=== PATIENT | female | born 1980 | race Asian ===

== ENCOUNTER 2017-05-24 20:16 | Emergency (ER) | payer OTHER ==
[2017-05-24] MEDS ORDERED: Albuterol 2.5 MG/3 ML NEB.SOL* (0.083%) INH ONE (20:23)
[2017-05-24] MEDS ORDERED: predniSONE TAB* 20 MG PO ONE (20:23)
[2017-05-24 20:33] VITALS: BP 157/88
[2017-05-24] MEDS ORDERED: Acetaminophen TAB* 325 MG PO ONE (20:40)
--- NOTE | 2017-05-24 20:57 | UC ---
Respiratory Complaint HPI - HPI Summary HPI Summary: 36 y/o female w/ PMHX of Asthma, HTN presents to the urgent care c/o of SOB and asthma exacerbation that started 1 hr ago at a [employer] party. She thinks the carpet of the place triggered the symptoms. She started w/ nasal congestion and running nose w/ clear nasal discharge, mild SOB and then wheezing. 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 She went to [facility] on Tuesday and she felt w/ chills and she took 2 ibuprofen and symptoms improved. Last time she use the albuterol inhaler was 1 week ago. Pt denies throat tightness, fever, cough, N/V/D, urinary symptoms, abdominal pain, QUIROZ. Pt has not other complains - History of Current Complaint Chief Complaint: UCAsthma Stated Complaint: CONGESTION ASTHMA Time Seen by Provider: 05/24/17 20:22 Hx Obtained From: Patient Hx Last Menstrual Period: 04/10/2017 ?: Yes Onset/Duration: Sudden Onset, Lasting Hours, Still Present Timing: Constant Severity Initially: Moderate Severity Currently: Moderate Pain Intensity: 0 Pain Scale Used: 0-10 Numeric Aggravating Factors: Allergens, Exertion, Deep Breaths Alleviating Factors: Bronchodilator Associated Signs And Symptoms: Positive: Dyspnea, Nasal Congestion - w/ clear discharge Related History: Seasonal Allergies - Risk Factors Pulmonary Embolism Risk Factors: Negative, Cardiac Risk Factors: Negative Pseudomonas Risk Factors: Negative Tuberculosis Risk Factors: Negative - Allergies/Home Medications Allergies/Adverse Reactions: Allergies Allergy/AdvReac Type Severity Reaction Status Date / Time Aspirin AdvReac Unknown Unknown Unverified 05/24/17 20:48 Reaction Details Bees Allergy Severe Hives Uncoded 05/24/17 21:23 seasonal allergies Allergy Severe respiratory Uncoded 05/24/17 20:48 Nuts Allergy Headache Uncoded 05/24/17 20:48 Home Medications: Home Medications Ibuprofen TAB* [Advil TAB*] 400 mg PO PRN 05/24/17 [History] PMH/Surg Hx/FS Hx/Imm Hx Previously Healthy: Yes Cardiovascular History: Hypertension Respiratory History: Asthma Other Respiratory History: sesonal allergies - Surgical History Surgical History: None - Family History Known Family History: Positive: Cardiac Disease, Hypertension - Social History Occupation: Employed Full-time Lives: With Family Alcohol Use: None Substance Use Type: None Smoking Status (MU): Never Smoked Tobacco Review of Systems Constitutional: Negative Skin: Rash - facial flush and neck w/ mild hives Eyes: Negative ENT: Nasal Discharge - w/ clear discharge, Sinus Congestion Respiratory: Shortness Of Breath - that started 1 hr ago at a alliance party Cardiovascular: Negative Gastrointestinal: Negative Genitourinary: Negative Motor: Negative Neurovascular: Negative Musculoskeletal: Negative Neurological: Negative Psychological: Negative All Other Systems Reviewed And Are Negative: Yes Physical Exam Triage Information Reviewed: Yes Appearance: Well-Appearing, No Pain Distress, Well-Nourished, Obese Vital Signs Reviewed: Yes Eye Exam: Normal Eyes: Positive: Conjunctiva Clear - PERRLS , EOMI, fundi grossly normal ENT: Positive: Normal ENT inspection, Hearing grossly normal, Pharynx normal, Nasal congestion, Nasal drainage - clear, TMs normal. Negative: Tonsillar swelling, Tonsillar exudate Dental Exam: Normal Neck exam: Normal Neck: Positive: Supple, Nontender, No Lymphadenopathy Respiratory: Positive: Chest non-tender, Lungs clear, No accessory muscle use, Respiratory distress - mild, Wheezing - B/L omari w/ diffuse wheezing Cardiovascular Exam: Normal Cardiovascular: Positive: RRR, No Murmur, Pulses Normal, Brisk Capillary Refill Abdominal Exam: Normal Abdomen Description: Positive: Nontender, No Organomegaly, Soft. Negative: CVA Tenderness (R), CVA Tenderness (L) Bowel Sounds: Positive: Present Musculoskeletal Exam: Normal Musculoskeletal: Positive: Strength Intact, ROM Intact, No Edema Neurological Exam: Normal Psychological Exam: Normal Skin: Positive: rashes - Facial flushed and neck with hives and pruritis Respiratory Course/Dx - Course Course Of Treatment: 36 y/o female w/ PMHX of Asthma,HTN presents to the urgent care c/o of SOB and asthma exacerbation that started 1 hr ago at a [employer] [place]. She thinks the carpet of the place triggered the symptoms. She started w / nasal congestion and running nose w/ clear nasal discharge, mild SOB and then wheezing. 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 She went to [facility] on Tuesday and she felt w/ chills and she took 2 ibuprofen and symptoms improved. Last time she use the albuterol inhaler was 1 week ago. Pt denies throat tightness, fever, cough, N/V/D, urinary symptoms, abdominal pain, QUIROZ. Hx obtained. Pt's O2sat: 97 and Temp: 100.4F. Pt w/ mild respiratory distress, given a nebulizer treatment immediately and Tylenol PO. Pt tolerated well albuterol treatment and O2sat improve. I advised the Pt to immediately go to the ER for further Treatment B/L lungs still with mild wheezing and since she has HX of anaphylactic reaction. I don't know what she was exposed to and now she is developing hives in her neck. Pt refused ambulace transport and stated her friend will take her to the ER in private car. Pt advised of all the risks . Pt stated she felt better after albuterol treatment. Pt left the clinic A&OX3 and hemodinamically stable and stating she was going to the ER. - Differential Dx/Diagnosis Differential Diagnosis/HQI/PQRI: Asthma - exacerbation, Bronchitis, Lower Resp Infection, Sinusitis, Other - anaphylactic reaction, allergic reaction, Provider Diagnoses: 1- Asthma exacerbation s/p allergic reaction r/o anaphylactic reaction. 2- Discharge - Discharge Plan Condition: Stable Disposition: HOME Discharge Disposition Comment: D/C to the ER for Tx on asthma exacerbation and poss. [id number]. Patient Education Materials: Asthma (ED), Anaphylaxis (ED) Referrals: Marlene Dumont MD [Primary Care Provider] - Additional Instructions: Please go to the ER immediately for further treatment to r/o anaphylactic reaction. Pt w/ Hx of Asthma and anaphylactic reaction to bee and allergy shot. Today exposed to unknown allergen at a [employer] party 1hr ago. Pt is about 6 weeks . Pt given albuterol treatment at the Urgent care, However, she still with SOB . Pt decline Ambulance transport, and decided to go by private car.
== END 2017-05-24 21:30 | disposition home or self-care (01) ==
LOC: UCEAST 20:16
DX: O26.891 Other specified pregnancy related conditions, first trimester (principal); J45.901 Unspecified asthma with (acute) exacerbation; I10 Essential (primary) hypertension; Z88.6 Allergy status to analgesic agent; Z91.030 Bee allergy status; Z91.018 Allergy to other foods; Z3A.01 Less than 8 weeks gestation of pregnancy
CPT/HCPCS: 81003; 84702; 87086; 99212; A9270-GY; G0463

== ENCOUNTER 2017-05-24 22:01 | Emergency (ER) | payer OTHER ==
[2017-05-24] MEDS ORDERED: Albuterol/Ipratropium NEB.SOL* Albuterol 2.5 MG/Ipratropium 0.5 MG 3 ML INH ONE (23:05)
--- NOTE | 2017-05-24 23:12 | ED ---
Viktoria Call SooYoung, scribed for Kraig Del Angel MD on 05/24/17 at 2304 . Asthma - HPI Summary HPI Summary: A 36 y/o F who is about 6-weeks presents to ED after an asthma attack at approx 2000. Pt [place] [facility] [place], they referred her to ED for further evaluation. Associated sx: chest and back tightness; erythema to chest and face; pruritus. Pt takes Albuterol at home as needed.She states this is the worst asthma attack she's ever had, unsure of what triggered it. - History of Current Complaint Chief Complaint: EDAsthma Stated Complaint: ASTHMA ATTACK-SENT FROM [facility] Time Seen by Provider: 05/24/17 23:01 Hx Obtained From: Patient Hx Last Menstrual Period: 04/10/2017 Onset/Duration: Sudden Onset, Lasting Hours, Still Present Timing: Constant Initial Severity: Severe Current Severity: Moderate Pain Intensity: 4 Pain Scale Used: 0-10 Numeric Alleviating Symptoms: Inhalers/Nebulizers - [place] [facility] Associated Signs and Symptoms: Positive: Negative - Allergy/Home Medications Allergies/Adverse Reactions: Allergies Allergy/AdvReac Type Severity Reaction Status Date / Time Aspirin AdvReac Unknown Unknown Verified 05/24/17 23:55 Reaction Details Bees Allergy Severe Hives Uncoded 05/24/17 21:23 seasonal allergies Allergy Severe respiratory Uncoded 05/24/17 20:48 Nuts Allergy Headache Uncoded 05/24/17 20:48 PMH/Surg Hx/FS Hx/Imm Hx Previously Healthy: No Endocrine/Hematology History: Denies: Hx Diabetes, Hx Thyroid Disease Cardiovascular History: Reports: Hx Hypertension Respiratory History: Reports: Hx Asthma Denies: Hx Chronic Obstructive Pulmonary Disease (COPD) GI History: Denies: Hx Ulcer Infectious Disease History: Denies: Hx Clostridium Difficile, Hx Hepatitis, Hx Human Immunodeficiency Virus (HIV), Hx Shingles, Hx Tuberculosis, Hx Known/Suspected VRE, Hx Known/ Suspected VRSA, History Other Infectious Disease, Traveled Outside the [place] in Last 30 Days - Family History Known Family History: Positive: Cardiac Disease, Hypertension - Social History Occupation: Employed Full-time Lives: Alone Alcohol Use: None Hx Substance Use: No Substance Use Type: Reports: None Hx Tobacco Use: No Smoking Status (MU): Never Smoked Tobacco Review of Systems Positive: Chest Pain - chest "tightness" Positive: Other - pos: back tightness Skin: Other - pos: erythema, pruritus All Other Systems Reviewed And Are Negative: Yes Physical Exam Triage Information Reviewed: Yes Vital Signs On Initial Exam: Initial Vitals Temp Pulse Resp BP Pulse Ox 99.4 F 74 22 156/89 98 05/24/17 22:12 05/24/17 22:12 05/24/17 22:12 05/24/17 22:12 05/24/17 22:12 Vital Signs Reviewed: Yes Appearance: Positive: Well-Appearing, No Pain Distress Skin: Positive: Warm Head/Face: Positive: Normal Head/Face Inspection Eyes: Positive: VALERIE ENT: Positive: Hearing grossly normal Neck: Positive: Supple Respiratory/Lung Sounds: Positive: Breath Sounds Present, Wheezes - few [id number] exp wheezes Cardiovascular: Positive: RRR Abdomen Description: Positive: Nontender, Soft Bowel Sounds: Positive: Present Musculoskeletal: Positive: Strength/ROM Intact Neurological: Positive: Alert, Oriented to Person Place, Time Diagnostics - Vital Signs Vital Signs Temp Pulse Resp BP Pulse Ox 05/24/17 22:12 99.4 F 74 22 156/89 98 - Laboratory Lab Statement: Any lab studies that have been ordered have been reviewed, and results considered in the medical decision making process. Re-Evaluation - Re-Evaluation First Eval Change: Improved Asthma Course/Dx - Course Course Of Treatment: A 36 y/o F who is about 6-weeks presents to ED after an asthma attack at approx 2000. Pt went [place] [facility] [place] nebul[place], they referred her to ED for further evaluation. Assocaited sx: chest and back tightness; erythema to chest and face; pruritus. Pt takes Albuterol at home as needed.She states this is the worst asthma attack she's ever had, unsure of what triggered it. Pt given duoneb in ED. Will D/C home to follow up with PCP. - Diagnoses Provider Diagnoses: Asthma Discharge - Discharge Plan Condition: Stable Disposition: HOME Patient Education Materials: Asthma (ED) Referrals: Marlene Dumont MD [Primary Care Provider] - Additional Instructions: Follow up with your primary care provider in the next few days. Please return to the ED if you experience new or worsening symptoms. The documentation as recorded by the scribe, VanDeMark,SooYoung accurately reflects the service I personally performed and the decisions made by me, Kraig Del Angel MD.
[2017-05-25 00:01] VITALS: BP 160/85
== END 2017-05-25 00:01 | disposition home or self-care (01) ==
LOC: ED 22:01
DX: R07.9 Chest pain, unspecified (principal); J45.909 Unspecified asthma, uncomplicated; Z34.91 Encounter for supervision of normal pregnancy, unspecified, first trimester
CPT/HCPCS: 94640; 99283; A9270-GY

== ENCOUNTER 2017-07-08 02:28 | Emergency (ER) | payer OTHER ==
[2017-07-08 03:22] LABS: Hematocrit 37 % (35-47); Hemoglobin 12.6 g/dl (12.0-16.0); Mean Corpuscular HGB Conc 34 g/dl (31-36); Mean Corpuscular Hemoglobin 30 pg (27-31); Mean Corpuscular Volume 88 fL (80-97); Mean Platelet Volume 8 um3 (7.4-10.4); Red Blood Count 4.17 10^6/ul (4.0-5.4); Red Cell Distribution Width 13 % (10.5-15); White Blood Count 9.4 10^3/ul (3.5-10.8)
[2017-07-08 03:25] LABS: Urine Bacteria Absent (Absent); Urine Bilirubin Negative (Negative); Urine Glucose Negative (Negative); Urine Nitrite Negative (Negative)
[2017-07-08 03:34] LABS: BUN/Creatinine Ratio 16.7 (8-20); EGFR African American 219.6 (>60); EGFR Non-African American 170.7 (>60); Potassium 3.2 mmol/L (3.5-5.0); Total Bilirubin 0.6 mg/dL (0.2-1.0)
--- NOTE | 2017-07-08 06:20 | ED ---
Tobin Call Benjamin, scribed for Marbin Harrington MD on 07/08/17 at 0253 . GI/ HPI - HPI Summary HPI Summary: 36yo female c/o sudden onset vaginal bleeding that started 30 minutes ago. Pt also reports some discomfort and slight cramping. Pt is still bleeding. Pt is 14 weeks right now and this is her 2nd . December 24, 2017 is her due date. First child was delivered vaginally, without any complications. Per EMR, pt's blood type is B positive. - History of Current Complaint Chief Complaint: EDVaginalBleeding Time Seen by Provider: 07/08/17 02:37 Stated Complaint: 14 WEEKS PRE, BLEEDING Hx Obtained From: Patient Hx Last Menstrual Period: 04/10/2017 Onset/Duration: Started Minutes Ago - 30 minutes Timing: Constant Severity: Mild Current Severity: Mild Vaginal Bleeding Description: Bright Red Pain Intensity: 1 Location of Pain: Suprapubic Pain Characteristics: Cramping Additional Signs & Symptoms: Positive: Vaginal Bleeding - Allergy/Home Medications Allergies/Adverse Reactions: Allergies Allergy/AdvReac Type Severity Reaction Status Date / Time Aspirin AdvReac Unknown Unknown Verified 07/08/17 02:33 Reaction Details Bees Allergy Severe Hives Uncoded 07/08/17 02:33 seasonal allergies Allergy Severe respiratory Uncoded 07/08/17 02:33 Nuts Allergy Headache Uncoded 07/08/17 02:33 PMH/Surg Hx/FS Hx/Imm Hx Endocrine/Hematology History: Denies: Hx Diabetes, Hx Thyroid Disease Cardiovascular History: Reports: Hx Hypertension Respiratory History: Reports: Hx Asthma Denies: Hx Chronic Obstructive Pulmonary Disease (COPD) GI History: Denies: Hx Ulcer Infectious Disease History: No Infectious Disease History: Denies: Hx Clostridium Difficile, Hx Hepatitis, Hx Human Immunodeficiency Virus (HIV), Hx Shingles, Hx Tuberculosis, Hx Known/Suspected VRE, Hx Known/ Suspected VRSA, History Other Infectious Disease, Traveled Outside the [place] in Last 30 Days - Family History Known Family History: Positive: Cardiac Disease, Hypertension - Social History Occupation: Employed Part-time Lives: Alone Alcohol Use: None Hx Substance Use: No Substance Use Type: Reports: None Hx Tobacco Use: No Smoking Status (MU): Never Smoked Tobacco Review of Systems Constitutional: Negative Eyes: Negative ENT: Negative Cardiovascular: Negative Respiratory: Negative Positive: Abdominal Pain - cramping Positive: other - vaginal bleeding Musculoskeletal: Negative Skin: Negative Neurological: Negative Psychological: Normal All Other Systems Reviewed And Are Negative: Yes Physical Exam - Summary Physical Exam Summary: The patient is well-nourished in no acute distress and in no acute pain. The skin is warm and dry and skin color reflects adequate perfusion. HEENT: The head is normocephalic and atraumatic. The pupils are equal and reactive. The conjunctivae are clear and without drainage. Nares are patent and without drainage. Mouth reveals moist mucous membranes and the throat is without erythema and exudate. The external ears are intact. The ear canals are patent and without drainage. The tympanic membranes are intact. Neck is supple with full range of motion and non-tender. There are no carotid bruits. There is no neck vein distension. Respiratory: Chest is non-tender. Lungs are clear to auscultation and breath sounds are symmetrical and equal. Cardiovascular: Hear is regular rate and rhythm. There is no murmur or rub auscultated. There is no peripheral edema and pulses are symmetrical and equal. Abdomen: The abdomen is soft and non-tender. There are normal bowel sounds heard in all four quadrants and there is no organomegaly palpated. Musculoskeletal: There is no back pain noted. Extremities are non-tender with full range of motion. There is good capillary refill. There is no peripheral edema or calf tenderness elicited. : Couldnt palpation fundus of the uterus Neurological: Patient is alert and oriented to person, place and time. The patient has symmetrical motor strength in all four extremities. Cranial nerves are grossly intact. Deep tendon reflexes are symmetrical and equal in all four extremities. Psychiatric: The patient has an appropriate affect and does not exhibit any anxiety or depression. Triage Information Reviewed: Yes Vital Signs On Initial Exam: Initial Vitals Temp Pulse Resp BP Pulse Ox 98.5 F 82 18 155/101 100 07/08/17 02:30 07/08/17 02:30 07/08/17 02:30 07/08/17 02:30 07/08/17 02:30 Vital Signs Reviewed: Yes Diagnostics - Vital Signs Vital Signs Temp Pulse Resp BP Pulse Ox 07/08/17 02:30 98.5 F 82 18 155/101 100 - Laboratory Lab Results: Lab Results 07/08/17 07/08/17 07/08/17 Range/Units 03:05 03:05 03:05 WBC 9.4 (3.5-10.8) 10^3/ul RBC 4.17 (4.0-5.4) 10^6/ul Hgb 12.6 (12.0-16.0) g/dl Hct 37 (35-47) % MCV 88 (80-97) fL MCH 30 (27-31) pg MCHC 34 (31-36) g/dl RDW 13 (10.5-15) % Plt Count 364 (150-450) 10^3/ul MPV 8 (7.4-10.4) um3 Neut % (Auto) 59.8 (38-83) % Lymph % (Auto) 30.9 (25-47) % Meagher % (Auto) 4.9 (1-9) % Eos % (Auto) 3.5 (0-6) % Baso % (Auto) 0.9 (0-2) % Absolute Neuts (auto) 5.6 (1.5-7.7) 10^3/ul Absolute Lymphs (auto) 2.9 (1.0-4.8) 10^3/ul Absolute Monos (auto) 0.5 (0-0.8) 10^3/ul Absolute Eos (auto) 0.3 (0-0.6) 10^3/ul Absolute Basos (auto) 0.1 (0-0.2) 10^3/ul Absolute Nucleated RBC 0 10^3/ul Nucleated RBC % 0 INR (Anticoag Therapy) 0.94 (0.89-1.11) Sodium 136 (133-145) mmol/L Potassium 3.2 L (3.5-5.0) mmol/L Chloride 106 (101-111) mmol/L Carbon Dioxide 22 (22-32) mmol/L Anion Gap 8 (2-11) mmol/L BUN 7 (6-24) mg/dL Creatinine 0.42 L (0.51-0.95) mg/dL Est GFR ( Amer) 219.6 (>60) Est GFR (Non-Af Amer) 170.7 (>60) BUN/Creatinine Ratio 16.7 (8-20) Glucose 80 (70-100) mg/dL Calcium 9.0 (8.6-10.3) mg/dL Total Bilirubin 0.60 (0.2-1.0) mg/dL AST 21 (13-39) U/L ALT 44 (7-52) U/L Alkaline Phosphatase 39 (34-104) U/L Total Protein 7.0 (6.4-8.9) g/dL Albumin 4.0 (3.2-5.2) g/dL Globulin 3.0 (2-4) g/dL Albumin/Globulin Ratio 1.3 (1-3) Beta HCG, Quant 646793.00 mIU/mL Urine Color Urine Appearance Urine pH (5-9) Ur Specific [place] (1.010-1.030) Urine Protein (Negative) Urine Ketones (Negative) Urine Blood (Negative) Urine Nitrate (Negative) Urine Bilirubin (Negative) Urine Urobilinogen (Negative) Ur Leukocyte Esterase (Negative) Urine WBC (Auto) (Absent) Urine RBC (Auto) (Absent) Ur Squamous Epith Cells (Absent) Urine Bacteria (Absent) Urine Glucose (Negative) Urine Ascorbic Acid (Negative) 07/08/17 Range/Units 03:05 WBC (3.5-10.8) 10^3/ul RBC (4.0-5.4) 10^6/ul Hgb (12.0-16.0) g/dl Hct (35-47) % MCV (80-97) fL MCH (27-31) pg MCHC (31-36) g/dl RDW (10.5-15) % Plt Count (150-450) 10^3/ul MPV (7.4-10.4) um3 Neut % (Auto) (38-83) % Lymph % (Auto) (25-47) % Meagher % (Auto) (1-9) % Eos % (Auto) (0-6) % Baso % (Auto) (0-2) % Absolute Neuts (auto) (1.5-7.7) 10^3/ul Absolute Lymphs (auto) (1.0-4.8) 10^3/ul Absolute Monos (auto) (0-0.8) 10^3/ul Absolute Eos (auto) (0-0.6) 10^3/ul Absolute Basos (auto) (0-0.2) 10^3/ul Absolute Nucleated RBC 10^3/ul Nucleated RBC % INR (Anticoag Therapy) (0.89-1.11) Sodium (133-145) mmol/L Potassium (3.5-5.0) mmol/L Chloride (101-111) mmol/L Carbon Dioxide (22-32) mmol/L Anion Gap (2-11) mmol/L BUN (6-24) mg/dL Creatinine (0.51-0.95) mg/dL Est GFR ( Amer) (>60) Est GFR (Non-Af Amer) (>60) BUN/Creatinine Ratio (8-20) Glucose (70-100) mg/dL Calcium (8.6-10.3) mg/dL Total Bilirubin (0.2-1.0) mg/dL AST (13-39) U/L ALT (7-52) U/L Alkaline Phosphatase (34-104) U/L Total Protein (6.4-8.9) g/dL Albumin (3.2-5.2) g/dL Globulin (2-4) g/dL Albumin/Globulin Ratio (1-3) Beta HCG, Quant mIU/mL Urine Color Yellow Urine Appearance Clear Urine pH 6.0 (5-9) Ur Specific [place] 1.020 (1.010-1.030) Urine Protein Negative (Negative) Urine Ketones Trace H (Negative) Urine Blood 2+ H (Negative) Urine Nitrate Negative (Negative) Urine Bilirubin Negative (Negative) Urine Urobilinogen Negative (Negative) Ur Leukocyte Esterase Negative (Negative) Urine WBC (Auto) Trace(0-5/hpf) (Absent) Urine RBC (Auto) Trace(0-2/hpf) (Absent) Ur Squamous Epith Cells Present H (Absent) Urine Bacteria Absent (Absent) Urine Glucose Negative (Negative) Urine Ascorbic Acid * H (Negative) Result Diagrams: 07/08/17 03:05 07/08/17 03:05 Lab Statement: Any lab studies that have been ordered have been reviewed, and results considered in the medical decision making process. GIGU Course/Dx - Course Course Of Treatment: Reviewed pt's medication list and allergies. High blood pressure noted. Per EMR, pt's blood type is B positive. Pt will be signed out to Dr. Muir at 0700 hour, pending US report. - Diagnoses Differential Diagnoses - Female: Threatened , Other - second trimester bleeding Provider Diagnoses: Threatened Discharge - Discharge Plan Condition: Stable Disposition: HOME The documentation as recorded by the Tobin boswell Benjamin accurately reflects the service I personally performed and the decisions made by me, Marbin Harrington MD.
--- NOTE | 2017-07-08 08:16 | RAD ---
INDICATION: Early patency. Request for limited evaluation to determine viability. COMPARISON: None TECHNIQUE: Transabdominal scanning was performed as part of limited evaluation. A anatomic survey was not performed. FINDINGS: There is a single intrauterine gestation in variable presentation with a posterior placenta. There is a marginal placenta previa. cardiac activity is documented at 150 beats for minute. Amniotic fluid index measures 14. Cervix is closed measuring 3.1 cm. The estimated gestational age based on biparietal diameter, head circumference, abdominal circumference, and femur length corresponds to 16 weeks 3 days, 16 weeks 2 days, 15 weeks 6 days, and 15 weeks 6 days resulting a composite ultrasound value of 16 weeks 1 day. IMPRESSION: EARLY INTRAUTERINE GESTATION AT 16 WEEKS 1 DAY BASED ON ULTRASOUND PARAMETERS. MARGINAL PLACENTA PREVIA. SUGGEST A FOLLOW-UP ANATOMIC SCAN AT 18-20 WEEKS WHICH CAN ALSO ASSESS FOR NORMAL PLACENTAL MIGRATION.
[2017-07-08 10:09] VITALS: BP 132/86
--- NOTE | 2017-07-08 10:38 | ED ---
Refugio Call Angela, scribed for Jt Muir MD on 07/08/17 at 0725 . Progress - Progress Note Progress Note: This pt is a 36 y/o female, currently 14 weeks , presenting to [facility] c/o sudden onset of vaginal bleeding that began at 0230 today. This pt was signed out from Dr. Harrington, pending disposition, awaiting US. US shows Early intrauterine gestation at 16 weeks 1 day based on ultrasound parameters. Marginal placenta previa. Suggest a follow-up anatomic scan at 18- 20 weeks which can also assess for normal placental migration. Pt will be discharged home in stable condition with diagnosis of threatened . - Results/Orders Results/Orders: US IMPRESSION: Early intrauterine gestation at 16 weeks 1 day based on ultrasound parameters. Marginal placenta previa. Suggest a follow-up anatomic scan at 18-20 weeks which can also assess for normal placental migration. ED physician has reviewed this radiology report and agrees. Course/Dx - Course Course Of Treatment: This pt is a 36 y/o female, currently 14 weeks , presenting to [facility] c/o sudden onset of vaginal bleeding that began at 0230 today. This pt was signed out from Dr. Harrington. He reports the pt came in with vaginal bleeding and is currently . Dr. Harrington ordered an US, which is read as: Early intrauterine gestation at 16 weeks 1 day based on ultrasound parameters. Marginal placenta previa. Suggest a follow-up anatomic scan at 18- 20 weeks which can also assess for normal placental migration. Rh is positive. I discussed the case with Dr. Wood, who recommends the pt be discharged home with follow up from her [employer] immediately. Pt is instructed to return to the ED for any increased vaginal bleeding or abdominal cramping. Pt is hemodynamically stable, alert and oriented x3 - Diagnoses Provider Diagnoses: Threatened - Provider Notifications Discussed Care Of Patient With: Patrice Wood Time Discussed With Above Provider: 09:22 Instructed by Provider To: Other - I discussed the pt's case with Dr. Wood. He recommeds that the pt be discharged home with follow up from pt's [employer]. The documentation as recorded by the Refugio boswell Angela accurately reflects the service I personally performed and the decisions made by me, Jt Muir MD.
== END 2017-07-08 10:15 | disposition home or self-care (01) ==
LOC: ED 02:28
DX: O46.91 Antepartum hemorrhage, unspecified, first trimester (principal); O20.0 Threatened abortion; Z3A.14 14 weeks gestation of pregnancy
CPT/HCPCS: 36415; 76815; 80053; 81003; 81015; 84702; 85025; 85610; 99282

== ENCOUNTER 2017-12-07 07:27 | Inpatient (IN) | payer OTHER ==
[2017-12-07] MEDS ORDERED: Oxytocin in LR* 20 UNITS/1,000 ML BAG IVPB SCH (09:00)
[2017-12-07 09:52] LABS: ABS Basophils 0 10^3/ul (0-0.2); ABS Eosinophils 0.1 10^3/ul (0-0.6); ABS Lymphocytes 2.1 10^3/ul (1.0-4.8); ABS Monocytes 0.4 10^3/ul (0-0.8); ABS Neutrophils 7.6 10^3/ul (1.5-7.7); ABS Nucleated RBC 0 10^3/ul; Eosinophil % 0.6 % (0-6); Hematocrit 37 % (35-47); Hemoglobin 12.6 g/dl (12.0-16.0); Lymphocyte % 20.6 % (25-47); Mean Corpuscular HGB Conc 34 g/dl (31-36); Mean Corpuscular Hemoglobin 31 pg (27-31); Mean Corpuscular Volume 91 fL (80-97); Mean Platelet Volume 9 um3 (7.4-10.4); Nucleated Red Blood Cells % 0.1; Platelet Count 325 10^3/ul (150-450); Red Blood Count 4.11 10^6/ul (4.0-5.4); Red Cell Distribution Width 14 % (10.5-15); White Blood Count 10.1 10^3/ul (3.5-10.8)
[2017-12-07] MEDS ORDERED: Dinoprostone* 10 MG VAG.SUPP VAGINAL ONE (19:42)
[2017-12-07] MEDS ORDERED: Nalbuphine* 20 MG/ML 1 ML VIAL IV PRN (19:49)
[2017-12-07] MEDS ORDERED: Promethazine INJ(RESTRICTED)* 25 MG/ML 1 ML VIAL IV PRN (19:50)
[2017-12-08] MEDS ORDERED: Oxytocin in LR* 20 UNITS/1,000 ML BAG IVPB SCH (09:00)
[2017-12-08] MEDS ORDERED: OBEPIDURAL* 250 ML EPIDURAL ONE (09:25)
[2017-12-08] MEDS ORDERED: Famotidine TAB* 20 MG PO PRN (10:05)
[2017-12-08] MEDS ORDERED: Sodium Citrate/Citric Acid* 15 ML UDC PO PRN (10:05)
[2017-12-08] MEDS ORDERED: EPHEDrine (Pressors)* 50 MG/ML VIAL IV PUSH PRN ×2 (10:05)
[2017-12-08] MEDS ORDERED: Phenylephrine IV* 40 MCG/ML 10 ML SYRINGE IV PUSH PRN ×2 (10:05)
[2017-12-08] MEDS ORDERED: OBEPIDURAL* 250 ML EPIDURAL SCH (11:00)
[2017-12-08] MEDS ORDERED: Dibucaine 1% 28.35 GM TUBE PR PRN (11:50)
[2017-12-08] MEDS ORDERED: Witch Hazel PAD* JAR TOPICAL PRN (11:50)
[2017-12-08] MEDS ORDERED: Glycerin ADULT SUPP PR PRN (11:50)
[2017-12-08] MEDS ORDERED: Simethicone TAB* 80 MG TAB.CHEW PO SCH (12:30)
[2017-12-08] MEDS: Docusate CAP* 100 MG PO SCH ×2 (14:23→21:31)
[2017-12-08] MEDS: Acetaminophen TAB* 325 MG PO PRN (18:11)
[2017-12-09 07:55] LABS: ABS Basophils 0 10^3/ul (0-0.2); ABS Eosinophils 0.1 10^3/ul (0-0.6); ABS Lymphocytes 2.9 10^3/ul (1.0-4.8); ABS Monocytes 0.6 10^3/ul (0-0.8); ABS Neutrophils 9.4 10^3/ul (1.5-7.7); ABS Nucleated RBC 0 10^3/ul; Eosinophil % 0.7 % (0-6); Hematocrit 28 % (35-47); Hemoglobin 9.6 g/dl (12.0-16.0); Lymphocyte % 22.5 % (25-47); Mean Corpuscular HGB Conc 34 g/dl (31-36); Mean Corpuscular Hemoglobin 31 pg (27-31); Mean Corpuscular Volume 90 fL (80-97); Mean Platelet Volume 9 um3 (7.4-10.4); Nucleated Red Blood Cells % 0; Platelet Count 257 10^3/ul (150-450); Red Blood Count 3.12 10^6/ul (4.0-5.4); Red Cell Distribution Width 14 % (10.5-15); White Blood Count 13.1 10^3/ul (3.5-10.8)
[2017-12-09] MEDS: Docusate CAP* 100 MG PO SCH ×3 (09:09→20:37)
[2017-12-09] MEDS: Ferrous Gluconate TAB* 324 MG TAB PO SCH ×2 (09:09→20:37)
[2017-12-09] MEDS: Acetaminophen TAB* 325 MG PO PRN (20:37)
[2017-12-09 21:01] VITALS: BP 152/89
[2017-12-09] MEDS ORDERED: diPHENhydraMINE PO* 50 MG PO PRN (22:52)
[2017-12-10] MEDS: Ibuprofen TAB* 600 MG PO PRN ×2 (02:43→14:04)
[2017-12-10] MEDS: Docusate CAP* 100 MG PO SCH (09:29)
[2017-12-10] MEDS: Ferrous Gluconate TAB* 324 MG TAB PO SCH (09:29)
== END 2017-12-10 14:19 | disposition home or self-care (01) | DRG 775 ==
LOC: MCHOBOUT 07:27 → MCHOB 08:45
PROVIDERS: ADMIT Obstetrics & Gynecology; ATTEND Obstetrics & Gynecology
PROC: 10907ZC Drainage of Amniotic Fluid, Therapeutic from Products of Conception, Via Natural or Artificial Opening (ICD-10-PCS; principal; 2017-12-07)
PROC: 10E0XZZ Delivery of Products of Conception, External Approach (ICD-10-PCS; 2017-12-07)
PROC: 4A1HX4Z Monitoring of Products of Conception, Cardiac Electrical Activity, External Approach (ICD-10-PCS; 2017-12-07)
PROC: 3E033VJ Introduction of Other Hormone into Peripheral Vein, Percutaneous Approach (ICD-10-PCS; 2017-12-07)
PROC: 3E0P7VZ Introduction of Hormone into Female Reproductive, Via Natural or Artificial Opening (ICD-10-PCS; 2017-12-07)
DX: O13.4 Gestational [pregnancy-induced] hypertension without significant proteinuria, complicating childbirth (principal); J45.909 Unspecified asthma, uncomplicated; O99.52 Diseases of the respiratory system complicating childbirth; Z37.0 Single live birth; Z3A.37 37 weeks gestation of pregnancy
CPT/HCPCS: 36415; 85025; 86850; 86900; 86901; A9270-GY; J2300; J2550

== ENCOUNTER 2020-03-27 22:07 | Observation (INO) ==
[2020-03-27] MEDS ORDERED: Labetalol IV 5 MG/ML 20 ml VIAL IV PUSH ONE (22:48)
[2020-03-27] MEDS ORDERED: NS 0.9% 1000 ml BAG 1,000 ML IV ONE (22:48)
[2020-03-27 22:58] LABS: ABS Basophils 0.1 10^3/ul (0-0.2); ABS Eosinophils 0.5 10^3/ul (0-0.6); ABS Lymphocytes 3.2 10^3/ul (1.0-4.8); ABS Monocytes 0.7 10^3/ul (0-0.8); Eosinophil % 5.3 %; Hematocrit 41 % (35-47); Hemoglobin 14.3 g/dL (12.0-16.0); Lymphocyte % 33.5 %; Mean Corpuscular HGB Conc 35 g/dL (31-36); Mean Corpuscular Hemoglobin 30 pg (27-31); Mean Corpuscular Volume 86 fL (80-97); Mean Platelet Volume 7.9 fL (7.4-10.4); Nucleated Red Blood Cells % 0.1; Platelet Count 372 10^3/uL (150-450); Red Blood Count 4.79 10^6 /uL (3.70-4.87); Red Cell Distribution Width 13 % (10-15); White Blood Count 9.6 10^3/uL (3.5-10.8)
[2020-03-27] MEDS ORDERED: Iodixanol (CONTRAST) 320 MG/ML 100 ML SDV IV ONE (23:19)
[2020-03-27 23:20] LABS: ALT 54 U/L (7-52); AST 27 U/L (13-39); Albumin 4.5 g/dL (3.2-5.2); Albumin/Globulin Ratio 1.3 (1-3); Alkaline Phosphatase 100 U/L (34-104); Anion Gap 8 mmol/L (2-11); BUN/Creatinine Ratio 28.3 (8-20); Blood Urea Nitrogen 17 mg/dL (6-24); CO2 Carbon Dioxide 29 mmol/L (22-32); Calcium 9.6 mg/dL (8.6-10.3); Chloride 101 mmol/L (101-111); EGFR African American 134.7 (>60); EGFR Non-African American 111.3 (>60); Globulin 3.4 g/dL (2-4); Glucose 97 mg/dL (70-100); Potassium 3.5 mmol/L (3.5-5.0); Sodium 138 mmol/L (135-145); Total Protein 7.9 g/dL (6.4-8.9)
[2020-03-27 23:26] LABS: HCG Pregnancy < 0.60 mIU/mL
[2020-03-27 23:42] LABS: TSH (Thyroid Stimulating Horm) 1.62 mcIU/mL (0.34-5.60)
[2020-03-28] MEDS ORDERED: Labetalol IV 5 MG/ML 20 ml VIAL IV PUSH PRN (01:58)
[2020-03-28] MEDS ORDERED: Dibucaine 1% OINT 28.35 GM TUBE PR PRN (02:00)
[2020-03-28] MEDS ORDERED: Albuterol/Ipratropium NEB.SOL (2.5/0.5 MG) 3 ML NEB.SOLN INH PRN (02:00)
[2020-03-28] MEDS ORDERED: Albuterol HFA INHALER 8 gm MDI INH PRN (02:00)
[2020-03-28 05:56] LABS: HIV 4th Generation Nonreactive (Nonreactive)
[2020-03-28 16:05] VITALS: BP 133/82
[2020-03-28] MEDS ORDERED: Fluticasone NASAL SPRAY 50MCG 16 gm SPRAY BTL INTRANASAL SCH (21:00)
== END 2020-03-28 18:40 | disposition home or self-care (01) | DRG 305 ==
LOC: ED 22:07 → INTOOBSV 03-28 01:52 → MEDTELE 03-28 01:52
PROVIDERS: ADMIT Internal Medicine; ATTEND Internal Medicine